=== PATIENT | male | born 1995 | race Two or more races ===

== ENCOUNTER 2019-11-14 23:33 | Emergency (ER) | payer OTHER ==
[~2019-11-14] VITALS: Ht 170.2 cm; Wt 56.7 kg
[2019-11-14 23:39] VITALS: BP 116/85
--- NOTE | 2019-11-14 23:50 | NUR ---
pt BIBSELF C/O THROAT TIGHTeNING S/P EATING SUSHI X1 HR AGO. PT AAOX4, VSS, SATTING 100% ON RA W/ NAD NOTED. PT CONNECTED TO THE MONITOR AND POX.
[2019-11-14] MEDS ORDERED: diphenhydrAMINE HCL 50 MG/ML VIAL ONE (23:57)
[2019-11-14] MEDS ORDERED: predniSONE 20 MG TABLET ONE (23:57)
[2019-11-14] MEDS ORDERED: predniSONE 10 MG TABLET ONE (23:57)
[2019-11-15] MEDS: predniSONE 50 MG TABLET PO ONE (00:02)
[2019-11-15] MEDS: diphenhydrAMINE HCL 50 MG/ML VIAL IM ONE (00:02)
--- NOTE | 2019-11-15 01:30 | NUR ---
Patient discharged to home in stable condition. Written and verbal after care instructions given. Patient verbalizes understanding of instruction.pt. ambulatory with a steady gait
== END 2019-11-15 01:31 | disposition home or self-care (01) ==
LOC: ER 23:36
DX: R07.0 Pain in throat (principal); J45.909 Unspecified asthma, uncomplicated; Z91.011 Allergy to milk products
CPT/HCPCS: 96372; 99283; J1200; J7512 ×2